=== PATIENT | male | born 1975 | race Caucasian/White ===

== ENCOUNTER 2016-07-27 17:44 | Emergency (ER) | payer OTHER ==
--- NOTE | 2016-07-27 18:09 | ED CLINICAL REPORT ---
Clinical Report - Physicians/Mid Levels [facility] [address] [place] [address] 07/27/2016 17:44 Patient: PEPE MI Time Seen: 1800; upon arrival, initial patient contact, initial documentation, patient care assumed. Arrived- By private vehicle. Historian- patient. HISTORY OF PRESENT ILLNESS Chief Complaint: LESION and TENDER AREA. This started about 2 days ago and is still present. Not itchy or burning. It is described as painful. It has been located on the right foot and left foot. No cause has been identified. (denies any new shoes, trauma). Similar symptoms previously: None. Recent medical care: Not recently seen/assessed. REVIEW OF SYSTEMS No fever. All systems otherwise negative, except as recorded above. PAST HISTORY See nurses notes. PROBLEMS: Bronchitis. Umm-Rectal Abscess. Depression. --17:59 Reema Perez, RGilles. SOCIAL HISTORY Heavy tobacco smoker. No alcohol use or drug use. No recent travel. Is a local resident. FAMILY HISTORY Negative. ADDITIONAL NOTES The nursing notes have been reviewed with agreement regarding the chief complaint, HPI, ROS, PMH and patient medications and allergies. PHYSICAL EXAM Vital Signs: 07/27/2016 17:57 BP: 135/87. HR: 86. RR: 18. O2 saturation: 97%. Temp: 98.1 F. Pain level now: 4/10. Appearance: Alert. Oriented X3. No acute distress. Neck: Neck supple. Respiratory: No respiratory distress. Skin: Skin warm and dry. Abnormal skin color. Rash present. Normal skin turgor. Moderate, well-demarcated, erythematous, macular skin rash on the right foot and left foot. (athletes feet present on both feet, with increased cracking and pealing in between toes, open wounds to base of toes on top of foot, on R foot near 3&4, on L near 4&5, each circular about 1 cm wide, strong foul odor). Extremities: Normal external inspection. Extremities nontender. Neuro: Oriented X 3. No motor deficit. No sensory deficit. PROGRESS AND PROCEDURES Patient counseled in person regarding the patient's stable condition and diagnosis. 18:09. Differential Diagnosis: Other possible considerations: fungus, cellulitis, mrsa, abscess, ulcer. Above considerations are based on history and physical exam. Differential diagnosis was discussed with patient. Disposition: Discharged home in good and unchanged condition (18:09). Condition: good and stable. CLINICAL IMPRESSION Athlete's foot INSTRUCTIONS Warnings: GENERAL WARNINGS: Return or contact your physician immediately if your condition worsens or changes unexpectedly, if not improving as expected, or if other problems arise. Specifically return if problem worsens. Prescription Medications: Lotrisone 1% / 0.05% Cream: Apply to affected areas twice daily for 2 weeks. Dispense fifteen (15) grams. No refills. Substitution is permissible. Follow-up: Follow up with your doctor in about five days even if well. Call for an appointment. Summary of care provided to patient. Understanding of the discharge instructions verbalized by patient. (Electronically signed by Vivian Becker A.R.N.P. 07/27/2016 22:07)
--- NOTE | 2016-07-27 18:09 | ED NURSING NOTES ---
Clinical Report - Nurses [facility] [place] [address] 07/27/2016 17:44 Patient: PEPE MI TRIAGE Acuity: LEVEL 4. Chief Complaint: SKIN LESION. Alert. No acute distress. --18:02 Reema Perez R.N. 17:57 07/27/16. BP: 135/87. HR: 86. RR: 18. O2 saturation: 97% on room air. Temp: 98.1 F (oral). Pain level now: 11/03. --18:02 Reema Perez R.N. Weight: 123.8 kg. Height/Length: 73 inches Per Patient. BMI: 36. --18:00 Reema Perez R.N. Medications None. --17:59 Reema Perez R.N. Medication/allergy information source: the patient. --18:02 Reema Perez R.N. Allergies Sulfa Antibiotics. Vicodin. --17:59 Reema Perez R.N. Penicillins. --17:59 Reema Perez R.N. History Arrived by private vehicle. Historian: patient. Accompanied by (girlfriend). Primary physician (none). Reported as located on the right foot and left foot. Onset. (2 days ago). ( Pt reports he has sores on the top of his feet and he has no idea what caused them.). PAST MEDICAL HX: Immunizations: up-to-date. SOCIAL HX: Current every day heavy tobacco smoker (cigarette)- less than 1 pack per day. No alcohol use or drug use. FALL RISK ASSESSMENT: Fall risk assessment completed. No fall risk identified. NUTRITIONAL RISK ASSESSMENT: The nutritional risk assessment revealed no deficiencies. FUNCTIONAL ASSESSMENT: Functional assessment: no impairments noted. LEARNING NEEDS ASSESSMENT: The learning needs assessment revealed no barriers. SKIN INTEGRITY ASSESSMENT: Skin integrity risk assessment completed. No skin integrity risk identified. --18:02 Reema Perez R.N. PROBLEMS: Bronchitis. Umm-Rectal Abscess. Depression. --17:59 Reema Perez R.N. Assessment GENERAL / NEURO / PSYCH: Alert. Oriented X 4. Appears in no acute distress. Patient appears calm and cooperative. RESPIRATORY: Respirations not labored. CVS: Capillary refill less than 2 seconds. GI / : Abdomen soft and nontender. SKIN: Mucous membranes are pink. Skin is warm and dry. --18:02 Reema Perez R.N. Interventions ID band on patient. To treatment room. --18:02 Reema Perez R.N. PHYSICAL ASSESSMENT 18:02 07/27/16. Ambulatory to room. GENERAL / NEURO / PSYCH: Alert. The patient does not appear to be in acute distress. Oriented X 4. HEENT: Mucous membranes are pink. RESPIRATORY: Respirations not labored. CVS: Capillary refill less than 2 seconds. GI / : Abdomen nontender. SKIN: Skin is warm and dry. Multiple small skin lesions with erythema and tenderness- on top of bilat feet. --18:02 Reema Perez R.N. NURSING PROGRESS NOTES 18:03 07/27/16. Two patient identifiers checked. Call light placed in reach. Side rails up x 1. Bed placed in lowest position. Brakes of bed on. --18:03 Reema Perez R.N. DISPOSITION / DISCHARGE Departure time: 1819Jul 27 2016. Condition at departure: improved and stable. No learning barriers present. Reviewed medication(s). Prescription(s) given to the patient. Patient verbalized understanding. Written instructions provided in Nigerien. The patient was discharged by the nurse practitioner. He was discharged home and accompanied by rn invasive. He left the Emergency Department ambulatory and via private vehicle. Recycler Forklift Driver Truck Driver driving. --19:07 Reema Perez R.N. Locked/Released at 07/27/2016 19:07 by Reema Perez R.N.
--- NOTE | 2016-07-27 18:09 | ED NURSING NOTES ---
Clinical Report - Nurses [facility] [place] [address] 07/27/2016 17:44 Patient: PEPE MI TRIAGE Acuity: LEVEL 4. Chief Complaint: SKIN LESION. Alert. No acute distress. --18:02 Reema Perez R.N. 17:57 07/27/16. BP: 135/87. HR: 86. RR: 18. O2 saturation: 97% on room air. Temp: 98.1 F (oral). Pain level now: 11/03. --18:02 Reema Perez R.N. Weight: 123.8 kg. Height/Length: 73 inches Per Patient. BMI: 36. --18:00 Reema Perez R.N. Medications None. --17:59 Reema Perez R.N. Medication/allergy information source: the patient. --18:02 Reema Perez R.N. Allergies Sulfa Antibiotics. Vicodin. --17:59 Reema Perez R.N. Penicillins. --17:59 Reema Perez R.N. History Arrived by private vehicle. Historian: patient. Accompanied by (girlfriend). Primary physician (none). Reported as located on the right foot and left foot. Onset. (2 days ago). ( Pt reports he has sores on the top of his feet and he has no idea what caused them.). PAST MEDICAL HX: Immunizations: up-to-date. SOCIAL HX: Current every day heavy tobacco smoker (cigarette)- less than 1 pack per day. No alcohol use or drug use. FALL RISK ASSESSMENT: Fall risk assessment completed. No fall risk identified. NUTRITIONAL RISK ASSESSMENT: The nutritional risk assessment revealed no deficiencies. FUNCTIONAL ASSESSMENT: Functional assessment: no impairments noted. LEARNING NEEDS ASSESSMENT: The learning needs assessment revealed no barriers. SKIN INTEGRITY ASSESSMENT: Skin integrity risk assessment completed. No skin integrity risk identified. --18:02 Reema Perez R.N. PROBLEMS: Bronchitis. Umm-Rectal Abscess. Depression. --17:59 Reema Perez R.N. Assessment GENERAL / NEURO / PSYCH: Alert. Oriented X 4. Appears in no acute distress. Patient appears calm and cooperative. RESPIRATORY: Respirations not labored. CVS: Capillary refill less than 2 seconds. GI / : Abdomen soft and nontender. SKIN: Mucous membranes are pink. Skin is warm and dry. --18:02 Reema Perez R.N. Interventions ID band on patient. To treatment room. --18:02 Reema Perez R.N. PHYSICAL ASSESSMENT 18:02 07/27/16. Ambulatory to room. GENERAL / NEURO / PSYCH: Alert. The patient does not appear to be in acute distress. Oriented X 4. HEENT: Mucous membranes are pink. RESPIRATORY: Respirations not labored. CVS: Capillary refill less than 2 seconds. GI / : Abdomen nontender. SKIN: Skin is warm and dry. Multiple small skin lesions with erythema and tenderness- on top of bilat feet. --18:02 Reema Perez R.N. NURSING PROGRESS NOTES 18:03 07/27/16. Two patient identifiers checked. Call light placed in reach. Side rails up x 1. Bed placed in lowest position. Brakes of bed on. --18:03 Reema Perez R.N. DISPOSITION / DISCHARGE Departure time: 1819Jul 27 2016. Condition at departure: improved and stable. No learning barriers present. Reviewed medication(s). Prescription(s) given to the patient. Patient verbalized understanding. Written instructions provided in Bahamian. The patient was discharged by the nurse practitioner. He was discharged home and accompanied by grocery store manager. He left the Emergency Department ambulatory and via private vehicle. Data Lead driving. --19:07 Reema Perez R.N. Locked/Released at 07/27/2016 19:07 by Reema Perez R.N.
--- NOTE | 2016-07-27 18:09 | ED CLINICAL REPORT ---
Clinical Report - Physicians/Mid Levels [facility] [address] [place] [address] 07/27/2016 17:44 Patient: PEPE MI Time Seen: 1800; upon arrival, initial patient contact, initial documentation, patient care assumed. Arrived- By private vehicle. Historian- patient. HISTORY OF PRESENT ILLNESS Chief Complaint: LESION and TENDER AREA. This started about 2 days ago and is still present. Not itchy or burning. It is described as painful. It has been located on the right foot and left foot. No cause has been identified. (denies any new shoes, trauma). Similar symptoms previously: None. Recent medical care: Not recently seen/assessed. REVIEW OF SYSTEMS No fever. All systems otherwise negative, except as recorded above. PAST HISTORY See nurses notes. PROBLEMS: Bronchitis. Umm-Rectal Abscess. Depression. --17:59 Reema Perez, RGilles. SOCIAL HISTORY Heavy tobacco smoker. No alcohol use or drug use. No recent travel. Is a local resident. FAMILY HISTORY Negative. ADDITIONAL NOTES The nursing notes have been reviewed with agreement regarding the chief complaint, HPI, ROS, PMH and patient medications and allergies. PHYSICAL EXAM Vital Signs: 07/27/2016 17:57 BP: 135/87. HR: 86. RR: 18. O2 saturation: 97%. Temp: 98.1 F. Pain level now: 4/10. Appearance: Alert. Oriented X3. No acute distress. Neck: Neck supple. Respiratory: No respiratory distress. Skin: Skin warm and dry. Abnormal skin color. Rash present. Normal skin turgor. Moderate, well-demarcated, erythematous, macular skin rash on the right foot and left foot. (athletes feet present on both feet, with increased cracking and pealing in between toes, open wounds to base of toes on top of foot, on R foot near 3&4, on L near 4&5, each circular about 1 cm wide, strong foul odor). Extremities: Normal external inspection. Extremities nontender. Neuro: Oriented X 3. No motor deficit. No sensory deficit. PROGRESS AND PROCEDURES Patient counseled in person regarding the patient's stable condition and diagnosis. 18:09. Differential Diagnosis: Other possible considerations: fungus, cellulitis, mrsa, abscess, ulcer. Above considerations are based on history and physical exam. Differential diagnosis was discussed with patient. Disposition: Discharged home in good and unchanged condition (18:09). Condition: good and stable. CLINICAL IMPRESSION Athlete's foot INSTRUCTIONS Warnings: GENERAL WARNINGS: Return or contact your physician immediately if your condition worsens or changes unexpectedly, if not improving as expected, or if other problems arise. Specifically return if problem worsens. Prescription Medications: Lotrisone 1% / 0.05% Cream: Apply to affected areas twice daily for 2 weeks. Dispense fifteen (15) grams. No refills. Substitution is permissible. Follow-up: Follow up with your doctor in about five days even if well. Call for an appointment. Summary of care provided to patient. Understanding of the discharge instructions verbalized by patient. (Electronically signed by Vivian Becker A.R.N.P. 07/27/2016 22:07)
--- NOTE | 2016-07-27 22:07 | ED DISCHARGE INSTRUCTIONS ---
Patient: PEPE MI General Instructions [facility] VisitID: [id number] [place] [address] 40y, M Registration Date/Time: 07/27/2016 Athlete's foot INSTRUCTIONS Warnings: GENERAL WARNINGS: Return or contact your physician immediately if your condition worsens or changes unexpectedly, if not improving as expected, or if other problems arise. Specifically return if problem worsens. Prescription Medications: Lotrisone 1% / 0.05% Cream: Apply to affected areas twice daily for 2 weeks. Dispense fifteen (15) grams. No refills. Substitution is permissible. Follow-up: Follow up with your doctor in about five days even if well. Call for an appointment. Summary of care provided to patient. Understanding of the discharge instructions verbalized by patient. ADDITIONAL INFORMATION Athletes Foot Athletes Foot is caused by a fungal infection in the skin. It affects the skin between the toes where it causes fissures (cracks in the skin). It can also affect the bottom of the foot where it causes dry white scales and peeling of the skin. This infection is more likely to occur when the foot is in hot, sweaty socks and shoes for long periods of time. This infection is treated with skin creams or oral medicine. Home Care: It is important to keep the feet dry. Use absorbent cotton socks and change them if they become sweaty; or wear an open-toe shoe or sandal. Wash the feet at least once a day with soap and water. Apply the antifungal cream as prescribed. Some antifungal creams are available without a prescription (Lotrimin, Tinactin). It may take a week before the rash starts to improve and it can take about three to four weeks to completely clear. Continue the medicine until the rash is all gone. Use [id number] antifungal powders or sprays on your feet after exposure to high-risk environments (public showers, gyms and locker rooms) may prevent future infections. You may wish to use appropriate footwear to reduce exposure. Follow Up with your doctor as recommended by our staff if the rash is not starting to improve after TEN days of treatment, or if the rash continues to spread. Get Prompt Medical Attention if any of the following occur: Increasing redness or swelling of the foot Pus draining from cracks in the skin Fever of 100.4F (38C) or higher, or as directed by your healthcare provider Clotrimazole Topical solution What is this medicine? CLOTRIMAZOLE (kloe TRIM a zole) is an antifungal medicine. It is used to treat certain kinds of fungal or yeast infections of the skin. How should I use this medicine? This medicine is for external use only. Do not take by mouth. Follow the directions on the prescription label. Wash your hands before and after use. If treating a hand or nail infection, wash hands before use only. Apply a thin layer to the affected area and a small amount to the surrounding area. Rub in gently. Do not get this medicine in your eyes. If you do, rinse out with plenty of cool tap water. Use this medicine at regular intervals. Do not use more often than directed. Finish the full course prescribed by your doctor or health child care centre director even if you think you are better. Do not stop using except on your doctor's advice. Talk to your studio designer regarding the use of this medicine in children. While this drug has been used in young children for selected conditions, precautions do apply. What side effects may I notice from receiving this medicine? Side effects that usually do not require medical attention (report to your doctor or health child care centre director if they continue or are bothersome): allergic reactions like skin rash, itching or hives, swelling of the face, lips, or tongue skin irritation, burning What may interact with this medicine? amphotericin b topical products that have nystatin What if I miss a dose? If you miss a dose, use it as soon as you can. If it is almost time for your next dose, use only that dose. Do not use double or extra doses. Where should I keep my medicine? Keep out of the reach of children. Store at room temperature between 2 to 30 degrees C (36 to 86 degrees F). Do not freeze. Throw away any unused medicine after the expiration date. What should I tell my health care provider before I take this medicine? They need to know if you have any of these conditions: an unusual or allergic reaction to clotrimazole, other antifungals or medicines, foods, dyes or preservatives or trying to get breast-feeding What should I watch for while using this medicine? Tell your doctor or health child care centre director if your symptoms do not start to improve after 7 days. Do not self-medicate for more than one week. If you are using this medicine for 'jock itch' be sure to dry the groin completely after bathing. Do not wear underwear that is tight-fitting or made from synthetic fibers like denzel or nylon. Wear loose-fitting, cotton underwear. If you are using this medicine for athlete's foot be sure to dry your feet carefully after bathing, especially between the toes. Do not wear socks made from wool or synthetic materials like denzel or nylon. Wear clean cotton socks and change them at least once a day, change them more if your feet sweat a lot. Also, try to wear sandals or shoes that are well-ventilated. You have been given the following additional information: Athlete's Foot Clotrimazole Topical solution (Electronically signed by Vivian Becker A.R.N.P. 07/27/2016 22:07)
--- NOTE | 2016-07-27 22:07 | ED MAR SUMMARY ---
..... Medication Administration Record [facility] [address] [place], [place] [id number] Patient: PEPE MI Visit ID: [id number] 40y, M Weight: 123.8 kg Height/Length: 73 in BMI: 36 ALLERGIES: Penicillins, Sulfa Antibiotics, Vicodin
--- NOTE | 2016-07-27 22:07 | ED MAR SUMMARY ---
..... Medication Administration Record [facility] [address] [place], [place] [id number] Patient: PEPE MI Visit ID: [id number] 40y, M Weight: 123.8 kg Height/Length: 73 in BMI: 36 ALLERGIES: Penicillins, Sulfa Antibiotics, Vicodin
--- NOTE | 2016-07-27 22:07 | ED DISCHARGE INSTRUCTIONS ---
Patient: PEPE MI General Instructions [facility] VisitID: [id number] [place] [address] 40y, M Registration Date/Time: 07/27/2016 Athlete's foot INSTRUCTIONS Warnings: GENERAL WARNINGS: Return or contact your physician immediately if your condition worsens or changes unexpectedly, if not improving as expected, or if other problems arise. Specifically return if problem worsens. Prescription Medications: Lotrisone 1% / 0.05% Cream: Apply to affected areas twice daily for 2 weeks. Dispense fifteen (15) grams. No refills. Substitution is permissible. Follow-up: Follow up with your doctor in about five days even if well. Call for an appointment. Summary of care provided to patient. Understanding of the discharge instructions verbalized by patient. ADDITIONAL INFORMATION Athletes Foot Athletes Foot is caused by a fungal infection in the skin. It affects the skin between the toes where it causes fissures (cracks in the skin). It can also affect the bottom of the foot where it causes dry white scales and peeling of the skin. This infection is more likely to occur when the foot is in hot, sweaty socks and shoes for long periods of time. This infection is treated with skin creams or oral medicine. Home Care: It is important to keep the feet dry. Use absorbent cotton socks and change them if they become sweaty; or wear an open-toe shoe or sandal. Wash the feet at least once a day with soap and water. Apply the antifungal cream as prescribed. Some antifungal creams are available without a prescription (Lotrimin, Tinactin). It may take a week before the rash starts to improve and it can take about three to four weeks to completely clear. Continue the medicine until the rash is all gone. Use rhqj-dqi-tkmchjz antifungal powders or sprays on your feet after exposure to high-risk environments (public showers, gyms and locker rooms) may prevent future infections. You may wish to use appropriate footwear to reduce exposure. Follow Up with your doctor as recommended by our staff if the rash is not starting to improve after TEN days of treatment, or if the rash continues to spread. Get Prompt Medical Attention if any of the following occur: Increasing redness or swelling of the foot Pus draining from cracks in the skin Fever of 100.4F (38C) or higher, or as directed by your healthcare provider Clotrimazole Topical solution What is this medicine? CLOTRIMAZOLE (kloe TRIM a zole) is an antifungal medicine. It is used to treat certain kinds of fungal or yeast infections of the skin. How should I use this medicine? This medicine is for external use only. Do not take by mouth. Follow the directions on the prescription label. Wash your hands before and after use. If treating a hand or nail infection, wash hands before use only. Apply a thin layer to the affected area and a small amount to the surrounding area. Rub in gently. Do not get this medicine in your eyes. If you do, rinse out with plenty of cool tap water. Use this medicine at regular intervals. Do not use more often than directed. Finish the full course prescribed by your doctor or health healthcare receptionist even if you think you are better. Do not stop using except on your doctor's advice. Talk to your construction executive regarding the use of this medicine in children. While this drug has been used in young children for selected conditions, precautions do apply. What side effects may I notice from receiving this medicine? Side effects that usually do not require medical attention (report to your doctor or health healthcare receptionist if they continue or are bothersome): allergic reactions like skin rash, itching or hives, swelling of the face, lips, or tongue skin irritation, burning What may interact with this medicine? amphotericin b topical products that have nystatin What if I miss a dose? If you miss a dose, use it as soon as you can. If it is almost time for your next dose, use only that dose. Do not use double or extra doses. Where should I keep my medicine? Keep out of the reach of children. Store at room temperature between 2 to 30 degrees C (36 to 86 degrees F). Do not freeze. Throw away any unused medicine after the expiration date. What should I tell my health care provider before I take this medicine? They need to know if you have any of these conditions: an unusual or allergic reaction to clotrimazole, other antifungals or medicines, foods, dyes or preservatives or trying to get breast-feeding What should I watch for while using this medicine? Tell your doctor or health healthcare receptionist if your symptoms do not start to improve after 7 days. Do not self-medicate for more than one week. If you are using this medicine for 'jock itch' be sure to dry the groin completely after bathing. Do not wear underwear that is tight-fitting or made from synthetic fibers like denzel or nylon. Wear loose-fitting, cotton underwear. If you are using this medicine for athlete's foot be sure to dry your feet carefully after bathing, especially between the toes. Do not wear socks made from wool or synthetic materials like denzel or nylon. Wear clean cotton socks and change them at least once a day, change them more if your feet sweat a lot. Also, try to wear sandals or shoes that are well-ventilated. You have been given the following additional information: Athlete's Foot Clotrimazole Topical solution (Electronically signed by Vivian Becker A.R.N.P. 07/27/2016 22:07)
--- NOTE | 2016-07-27 22:07 | ED MED RECONCILIATION SUMMARY ---
Patient: PEPE MI Medication Reconciliation Report [facility] VisitID: [id number] [address] [place] [address] 40y, M Registration Date/Time: 07/27/2016 Weight: 123.8 kg Height/Length: 73 in. BMI: 36.0 ALLERGIES: Penicillins, Sulfa Antibiotics, Vicodin The patient's Home Medications are listed below: NONE. The source(s) of the original Home Medication information: patient The following Medications were given to the patient in the Emergency Department: None. The following Medications were prescribed to the patient: Lotrisone 1% / 0.05% Cream: Apply to affected areas twice daily for 2 weeks. Dispense fifteen (15) grams. No refills. Substitution is permissible. -- Vivian Becker A.R.N.P.
--- NOTE | 2016-07-27 22:07 | ED MED RECONCILIATION SUMMARY ---
Patient: PEPE MI Medication Reconciliation Report [facility] VisitID: [id number] [address] [place] [address] 40y, M Registration Date/Time: 07/27/2016 Weight: 123.8 kg Height/Length: 73 in. BMI: 36.0 ALLERGIES: Penicillins, Sulfa Antibiotics, Vicodin The patient's Home Medications are listed below: NONE. The source(s) of the original Home Medication information: patient The following Medications were given to the patient in the Emergency Department: None. The following Medications were prescribed to the patient: Lotrisone 1% / 0.05% Cream: Apply to affected areas twice daily for 2 weeks. Dispense fifteen (15) grams. No refills. Substitution is permissible. -- Vivian Becker A.R.N.P.
== END 2016-07-27 18:20 | disposition home or self-care (01) ==
LOC: ED SRH 17:44
DX: B35.3 Tinea pedis (principal); F17.210 Nicotine dependence, cigarettes, uncomplicated; Z88.0 Allergy status to penicillin; Z88.2 Allergy status to sulfonamides; Z88.5 Allergy status to narcotic agent

== ENCOUNTER 2016-12-18 19:18 | Emergency (ER) | payer OTHER ==
--- NOTE | 2016-12-18 20:45 | ED NURSING NOTES ---
Clinical Report - Nurses [facility] [address] [place] [address] 12/18/2016 19:23 Patient: PEPE IM TRIAGE Triage time 19:31. Acuity: LEVEL 3. Chief Complaint: LEFT LOWER EXTREMITY PAIN and SWELLING. --19:35 Sheriff Gonzales R.N. 19:30 12/18/16. BP: 147/82. HR: 92. RR: 18. O2 saturation: 98%. Temp: 97.8 F. Pain level now: 03/05. --19:35 Sheriff Gonzales R.N. Weight: 122.4 kg stated. Height/Length: 74 inches Per Patient. BMI: 34.7. --19:30 Sheriff Gonzales R.N. Medications None. --19:33 Sheriff Gonzales R.N. Allergies Penicillins. Sulfa Antibiotics. Vicodin. --19:33 Sheriff Gonzales R.N. History Arrived by private vehicle. Historian: patient. Accompanied by friend. ( Tripped over a log and landed on left knee. Noted swelling and redness. Pain 03/05). PAST MEDICAL HX: Tetanus status: unknown. SOCIAL HX: Heavy tobacco smoker- less than 1 pack per day. No alcohol use or drug use. FALL RISK ASSESSMENT: Fall risk assessment completed. No fall risk identified. NUTRITIONAL RISK ASSESSMENT: The nutritional risk assessment revealed no deficiencies. FUNCTIONAL ASSESSMENT: Functional assessment: no impairments noted. LEARNING NEEDS ASSESSMENT: The learning needs assessment revealed no barriers. SKIN INTEGRITY ASSESSMENT: Skin integrity risk assessment completed. No skin integrity risk identified. --19:35 Sheriff Gonzales R.N. PROBLEMS: Athlete's Foot. Bronchitis. Umm-Rectal Abscess. Depression. --19:33 Sheriff Gonzales R.N. Interventions ID band on patient. --19:35 Sheriff Gonzales R.N. PHYSICAL ASSESSMENT Ambulatory to room. GENERAL / NEURO / PSYCH: Oriented X 4. Alert. Appears in no acute distress. Appears in pain. EXTREMITIES: Left knee: tenderness and swelling. SKIN: Skin intact. Skin is warm and dry. --19:36 Sheriff Gonzales R.N. NURSING PROGRESS NOTES Two patient identifiers checked. Call light placed in reach. Side rails up x 2. Bed placed in lowest position. Brakes of bed on. --19:36 Sheriff Gonzales R.N. 20:01 12/18/2016 Motrin PO 800 mg given. Allergies verified and confirmed 5 rights. --20:01 Sheriff Gonzales R.N. 20:30 12/18/16. Immobilizer applied to the left knee by nurse; distal pulses intact, sensation intact and motor function within normal limits. --02:31 Aidee Barnett. DISPOSITION / DISCHARGE 20:45 12/18/16. Condition at departure: stable. The goals identified in the patient's plan of care were met. No learning barriers present. Discharge instructions provided and reviewed with the patient and spouse. Reviewed need for increased fluid intake. Work note given. Patient and spouse verbalized understanding. Written instructions provided in Tajik. ( Follow up with [facility] for next available appointment. Rest and take it easy. Apply ice to affected extremity, elevate and take anti-inflammatories as needed. Patient and family verbalized understanding and had no additional questions at this time.). The patient was discharged by the physician assistant auditor. He was discharged home and accompanied by spouse. He left the Emergency Department ambulatory and via private vehicle. Spouse driving. --02:30 Aidee Barnett 02:25 12/18/16. BP: 137/82. HR: 76. RR: 20. O2 saturation: 98% on room air. Pain level now: 02/02. --02:30 Aidee Barnett. Locked/Released at 12/19/2016 2:31 by Aidee Barnett,
--- NOTE | 2016-12-18 20:45 | ED ORDER SUMMARY ---
..... Patient: PEPE MI OrderSheet [facility] VisitID: [id number] [address] [place] [address] 40y, M Registration Date/Time: 12/18/2016 ORDER SHEET Weight: 122.4 kg (stated) Allergies: Penicillins, Sulfa Antibiotics, Vicodin GENERAL ORDERS: Knee 4V Left Urgent (19:46 12/18/2016 Lilian P.A.-C) (Ack 19:49 AMcQuoid ER Tech1) MEDICATION ORDERS: Motrin PO 800 mg (NOW) (19:53 12/18/2016 Lilian P.A.-C) (20:01 Rima R.N.) IV FLUIDS: ORDER SHEET NOTES: [Electronically signed by Nimco GuillenAShea-Shannon (21:06 12/18/2016)] [Electronically signed by Aidee Barnett (02:31 12/19/2016)] [Electronically locked/signed by Aidee Barnett (02:31 12/19/2016)]
--- NOTE | 2016-12-18 20:45 | ED CLINICAL REPORT ---
Clinical Report - Physicians/Mid Levels [facility] [address] [place] [address] 12/18/2016 19:23 Patient: PEPE MI Time Seen: 19:46 Dec 18 2016. Arrived- By private vehicle. Historian- patient. HISTORY OF PRESENT ILLNESS Chief Complaint: Injury to left knee. The injury happened just prior to arrival. The patient sustained a direct blow. Fell. This was not an incised wound. Occurred at work. Patient is experiencing moderate pain. Patient denies injury to the head. 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 Reports falling onto his hands and wrists, however does not have operation of any pain. No LOC, no injury to the head. Has been ambulating, however limping. Denies Injury to the left knee that was major in nature. No medications prior to arrival.). REVIEW OF SYSTEMS The patient complains of pain on weight bearing. All systems otherwise negative, except as recorded above. PAST HISTORY See nurses notes. The patient has not had a prior injury to the same area. Tetanus immunization status is up-to-date. Problems: Athlete's Foot. Bronchitis. Umm-Rectal Abscess. Depression. Medications: None. Allergies: Penicillins. Sulfa Antibiotics. Vicodin. SOCIAL HISTORY Smoker- current status unknown. No alcohol use or drug use. ADDITIONAL NOTES The nursing notes have been reviewed. PHYSICAL EXAM Vital Signs: 12/18/2016 19:30 BP: 147/82. HR: 92. RR: 18. O2 saturation: 98%. Temp: 97.8 F. Pain level now: 8/10. Appearance: Alert. No acute distress. Head: Head atraumatic. ENT: Ears normal. Nose normal. Neck: Normal inspection. Neck supple. CVS: Heart sounds normal. Respiratory: No respiratory distress. Breath sounds normal. Abdomen: No visible injury. Soft. No abdominal tenderness. The bowel sounds are not abnormal. Skin: Skin warm. Normal skin color. Extremities: Left thigh. No tenderness or laceration. Left knee: mild tenderness and swelling located in the patella. Limited ROM. No ligamentous laxity present. No ecchymosis or puncture wound. Left leg. No tenderness or swelling. Left ankle. No ecchymosis or foreign body. Gait: Limping gait. Neuro, Vascular and Tendons: Vascular status intact. Neuro: Oriented X 3. LABS, X-RAYS, AND EKG Lt Knee X-ray: No fracture. Interpretation time: 2044. PROGRESS AND PROCEDURES PROCEDURES (L. knee immobolizer). Course of Care: Patient is stable. Able to ambulate, given the immobilizer for support. No signs of acute fracture of the left knee. Given the mechanism which is lower in nature and direct trauma, ligamentous injury is less likely, however cannot be ruled out. Patient understands the plan to follow up outpatient, take anti-inflammatory medications and elevate the lower extremity. Patient is stable. Patient/family counseled. Disposition: Discharged. CLINICAL IMPRESSION Contusion to the right knee. INSTRUCTIONS Apply ice. Elevate affected areas above chest level. No strenuous activity. You may walk and bear weight as tolerated. Do not work for three days. OTC Medications: Take OTC medications according to label instructions. Available over the counter. Motrin IB 200 mg (available over the counter): take 4 orally every 8 hours for 5 days, as needed for pain or swelling Follow-up with: [facility], , [address], , [place], [id number] Follow up. Call for the next available appointment. (Electronically signed by Nimco Guillen P.A.-C 12/18/2016 21:06)
--- NOTE | 2016-12-18 20:45 | ED ORDER SUMMARY ---
..... Patient: PPEE MI OrderSheet [facility] VisitID: [id number] [address] [place] [address] 40y, M Registration Date/Time: 12/18/2016 ORDER SHEET Weight: 122.4 kg (stated) Allergies: Penicillins, Sulfa Antibiotics, Vicodin GENERAL ORDERS: Knee 4V Left Urgent (19:46 12/18/2016 Lilian P.A.-C) (Ack 19:49 AMcQuoid ER Tech1) MEDICATION ORDERS: Motrin PO 800 mg (NOW) (19:53 12/18/2016 Lilian P.A.-C) (20:01 Rima R.N.) IV FLUIDS: ORDER SHEET NOTES: [Electronically signed by Nimco GuillenAShea-Shannon (21:06 12/18/2016)] [Electronically signed by Aidee Barnett (02:31 12/19/2016)] [Electronically locked/signed by Aidee Barnett (02:31 12/19/2016)]
--- NOTE | 2016-12-18 20:45 | ED CLINICAL REPORT ---
Clinical Report - Physicians/Mid Levels [facility] [address] [place] [address] 12/18/2016 19:23 Patient: PEPE MI Time Seen: 19:46 Dec 18 2016. Arrived- By private vehicle. Historian- patient. HISTORY OF PRESENT ILLNESS Chief Complaint: Injury to left knee. The injury happened just prior to arrival. The patient sustained a direct blow. Fell. This was not an incised wound. Occurred at work. Patient is experiencing moderate pain. Patient denies injury to the head. 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 Reports falling onto his hands and wrists, however does not have operation of any pain. No LOC, no injury to the head. Has been ambulating, however limping. Denies Injury to the left knee that was major in nature. No medications prior to arrival.). REVIEW OF SYSTEMS The patient complains of pain on weight bearing. All systems otherwise negative, except as recorded above. PAST HISTORY See nurses notes. The patient has not had a prior injury to the same area. Tetanus immunization status is up-to-date. Problems: Athlete's Foot. Bronchitis. Umm-Rectal Abscess. Depression. Medications: None. Allergies: Penicillins. Sulfa Antibiotics. Vicodin. SOCIAL HISTORY Smoker- current status unknown. No alcohol use or drug use. ADDITIONAL NOTES The nursing notes have been reviewed. PHYSICAL EXAM Vital Signs: 12/18/2016 19:30 BP: 147/82. HR: 92. RR: 18. O2 saturation: 98%. Temp: 97.8 F. Pain level now: 8/10. Appearance: Alert. No acute distress. Head: Head atraumatic. ENT: Ears normal. Nose normal. Neck: Normal inspection. Neck supple. CVS: Heart sounds normal. Respiratory: No respiratory distress. Breath sounds normal. Abdomen: No visible injury. Soft. No abdominal tenderness. The bowel sounds are not abnormal. Skin: Skin warm. Normal skin color. Extremities: Left thigh. No tenderness or laceration. Left knee: mild tenderness and swelling located in the patella. Limited ROM. No ligamentous laxity present. No ecchymosis or puncture wound. Left leg. No tenderness or swelling. Left ankle. No ecchymosis or foreign body. Gait: Limping gait. Neuro, Vascular and Tendons: Vascular status intact. Neuro: Oriented X 3. LABS, X-RAYS, AND EKG Lt Knee X-ray: No fracture. Interpretation time: 2044. PROGRESS AND PROCEDURES PROCEDURES (L. knee immobolizer). Course of Care: Patient is stable. Able to ambulate, given the immobilizer for support. No signs of acute fracture of the left knee. Given the mechanism which is lower in nature and direct trauma, ligamentous injury is less likely, however cannot be ruled out. Patient understands the plan to follow up outpatient, take anti-inflammatory medications and elevate the lower extremity. Patient is stable. Patient/family counseled. Disposition: Discharged. CLINICAL IMPRESSION Contusion to the right knee. INSTRUCTIONS Apply ice. Elevate affected areas above chest level. No strenuous activity. You may walk and bear weight as tolerated. Do not work for three days. OTC Medications: Take OTC medications according to label instructions. Available over the counter. Motrin IB 200 mg (available over the counter): take 4 orally every 8 hours for 5 days, as needed for pain or swelling Follow-up with: [facility], , [address], , [place], [address] Follow up. Call for the next available appointment. (Electronically signed by Nimco Guillen P.A.-C 12/18/2016 21:06)
--- NOTE | 2016-12-18 20:45 | ED NURSING NOTES ---
Clinical Report - Nurses [facility] [address] [place] [address] 12/18/2016 19:23 Patient: PEPE MI TRIAGE Triage time 19:31. Acuity: LEVEL 3. Chief Complaint: LEFT LOWER EXTREMITY PAIN and SWELLING. --19:35 Sheriff Gonzales R.N. 19:30 12/18/16. BP: 147/82. HR: 92. RR: 18. O2 saturation: 98%. Temp: 97.8 F. Pain level now: 03/05. --19:35 Sheriff Gonzales R.N. Weight: 122.4 kg stated. Height/Length: 74 inches Per Patient. BMI: 34.7. --19:30 Sheriff Gonzales R.N. Medications None. --19:33 Sheriff Gonzales R.N. Allergies Penicillins. Sulfa Antibiotics. Vicodin. --19:33 Sheriff Gonzales R.N. History Arrived by private vehicle. Historian: patient. Accompanied by friend. ( Tripped over a log and landed on left knee. Noted swelling and redness. Pain 03/05). PAST MEDICAL HX: Tetanus status: unknown. SOCIAL HX: Heavy tobacco smoker- less than 1 pack per day. No alcohol use or drug use. FALL RISK ASSESSMENT: Fall risk assessment completed. No fall risk identified. NUTRITIONAL RISK ASSESSMENT: The nutritional risk assessment revealed no deficiencies. FUNCTIONAL ASSESSMENT: Functional assessment: no impairments noted. LEARNING NEEDS ASSESSMENT: The learning needs assessment revealed no barriers. SKIN INTEGRITY ASSESSMENT: Skin integrity risk assessment completed. No skin integrity risk identified. --19:35 Sheriff Gonzales R.N. PROBLEMS: Athlete's Foot. Bronchitis. Umm-Rectal Abscess. Depression. --19:33 Sheriff Gonzales R.N. Interventions ID band on patient. --19:35 Sheriff Gonzales R.N. PHYSICAL ASSESSMENT Ambulatory to room. GENERAL / NEURO / PSYCH: Oriented X 4. Alert. Appears in no acute distress. Appears in pain. EXTREMITIES: Left knee: tenderness and swelling. SKIN: Skin intact. Skin is warm and dry. --19:36 Sheriff Gonzales R.N. NURSING PROGRESS NOTES Two patient identifiers checked. Call light placed in reach. Side rails up x 2. Bed placed in lowest position. Brakes of bed on. --19:36 Sheriff Gonzales R.N. 20:01 12/18/2016 Motrin PO 800 mg given. Allergies verified and confirmed 5 rights. --20:01 Sheriff Gonzales R.N. 20:30 12/18/16. Immobilizer applied to the left knee by nurse; distal pulses intact, sensation intact and motor function within normal limits. --02:31 Aidee Barnett. DISPOSITION / DISCHARGE 20:45 12/18/16. Condition at departure: stable. The goals identified in the patient's plan of care were met. No learning barriers present. Discharge instructions provided and reviewed with the patient and spouse. Reviewed need for increased fluid intake. Work note given. Patient and spouse verbalized understanding. Written instructions provided in Malay. ( [facility] up [facility] for next available appointment. Rest and take it easy. Apply ice to affected extremity, elevate and take anti-inflammatories as needed. Patient and family verbalized understanding and had no additional questions at this time.). The patient was discharged by the physician orthopedic assistant. He was discharged home and accompanied by spouse. He left the Emergency Department ambulatory and via private vehicle. Spouse driving. --02:30 Aidee Barnett 02:25 12/18/16. BP: 137/82. HR: 76. RR: 20. O2 saturation: 98% on room air. Pain level now: 02/02. --02:30 Aidee Barnett. Locked/Released at 12/19/2016 2:31 by Aidee Barnett,
--- NOTE | 2016-12-18 22:05 | DIAGNOSTIC IMAGING REPORT ---
PROCEDURE: XR KNEE 4 VIEWS - LEFT INDICATION: TRAUMA/INJURY TECHNIQUE: Four views. COMPARISON: None. FINDINGS: Osseous structures and joint spaces are normal. No effusion. IMPRESSION: 1. Normal left knee.
--- NOTE | 2016-12-19 02:31 | ED DISCHARGE INSTRUCTIONS ---
Patient: PEPE MI General Instructions [facility] VisitID: [id number] [address] [place] [address] 40y, M Registration Date/Time: 12/18/2016 Contusion to the right knee. INSTRUCTIONS Apply ice. Elevate affected areas above chest level. No strenuous activity. You may walk and bear weight as tolerated. Do not work for three days. OTC Medications: Take OTC medications according to label instructions. Available over the counter. Motrin IB 200 mg (available over the counter): take 4 orally every 8 hours for 5 days, as needed for pain or swelling Follow-[facility] with: [facility], , [address] [place], [address] Follow up. Call for the next available appointment. ADDITIONAL INFORMATION Contusion:Lower Extremity You have a CONTUSION of your LOWER extremity (leg, knee, ankle, foot, or toes). This causes local pain, swelling and sometimes bruising. There are no broken bones. This injury may take from a few days to a few weeks to heal. Home Care: 1) Keep your leg elevated to reduce pain and swelling. When sleeping, place a pillow under the injured leg. When sitting, support the injured leg so it is level with your waist. This is very important during the first 48 hours. 2) If CRUTCHES have been advised, do not bear full weight on the injured leg until you can do so without pain. You may return to sports when you are able to hop and run on the injured leg without pain. 3) Apply an ice pack (ice cubes in a plastic bag, wrapped in a towel) over the injured area for 20 minutes every 1-2 hours the first day for pain relief. Continue this 3-4 times a day until the pain and swelling goes away. 4) You may use acetaminophen (Tylenol) or ibuprofen (Motrin, Advil) to control pain, unless another pain medicine was prescribed. [ NOTE : If you have chronic liver or kidney disease or ever had a stomach ulcer or GI bleeding, talk with your doctor before using these medicines.] Follow Up with your doctor or this facility if you are not starting to improve within the next THREE days. [NOTE: If X-rays were taken, they will be reviewed by a radiologist. You will be notified of any new findings that may affect your care.] Get Prompt Medical Attention if any of the following occur: -- Pain or swelling increases -- Toes become cold, blue, numb or tingly -- Redness, warmth or drainage from the skin Ibuprofen Oral tablet What is this medicine? IBUPROFEN (eye BYOO proe fen) is a non-steroidal anti-inflammatory drug (NSAID). It is used for dental pain, fever, headaches or migraines, osteoarthritis, rheumatoid arthritis, or painful monthly periods. It can also relieve minor aches and pains caused by a cold, flu, or sore throat. How should I use this medicine? Take this medicine by mouth with a glass of water. Follow the directions on the prescription label. Take this medicine with food if your stomach gets upset. Try to not lie down for at least 10 minutes after you take the medicine. Take your medicine at regular intervals. Do not take your medicine more often than directed. A special MedGuide will be given to you by the pharmacist with each prescription and refill. Be sure to read this information carefully each time. Talk to your baseball inspector and repairer regarding the use of this medicine in children. Special care may be needed. What side effects may I notice from receiving this medicine? Side effects that you should report to your doctor or health rn primary care as soon as possible: allergic reactions like skin rash, itching or hives, swelling of the face, lips, or tongue black or bloody stools, blood in the urine or in vomit breathing problems changes in vision chest pain general ill feeling or flu-like symptoms nausea or vomiting redness, blistering, peeling or loosening of the skin, including inside the mouth slurred speech or weakness on one side of the body stomach pain unexplained weight gain or swelling unusually weak or tired yellowing of eyes or skin Side effects that usually do not require medical attention (report to your doctor or health rn primary care if they continue or are bothersome): constipation or diarrhea dizziness gas or heartburn stomach upset What may interact with this medicine? Do not take this medicine with any of the following medications: cidofovir ketorolac methotrexate pemetrexed This medicine may also interact with the following medications: alcohol aspirin diuretics lithium other drugs for inflammation like prednisone warfarin What if I miss a dose? If you miss a dose, take it as soon as you can. If it is almost time for your next dose, take only that dose. Do not take double or extra doses. Where should I keep my medicine? Keep out of the reach of children. Store at room temperature between 15 and 30 degrees C (59 and 86 degrees F). Keep container tightly closed. Throw away any unused medicine after the expiration date. What should I tell my health care provider before I take this medicine? They need to know if you have any of these conditions: asthma cigarette smoker drink more than 3 alcohol containing drinks a day heart disease or circulation problems such as heart failure or leg edema (fluid retention) high blood pressure kidney disease liver disease stomach bleeding or ulcers an unusual or allergic reaction to ibuprofen, aspirin, other NSAIDS, other medicines, foods, dyes, or preservatives or trying to get breast-feeding What should I watch for while using this medicine? Tell your doctor or healthcare professional if your symptoms do not start to get better or if they get worse. This medicine does not prevent heart attack or stroke. In fact, this medicine may increase the chance of a heart attack or stroke. The chance may increase with longer use of this medicine and in people who have heart disease. If you take aspirin to prevent heart attack or stroke, talk with your doctor or health rn primary care. Do not take other medicines that contain aspirin, ibuprofen, or naproxen with this medicine. Side effects such as stomach upset, nausea, or ulcers may be more likely to occur. Many medicines available without a prescription should not be taken with this medicine. This medicine can cause ulcers and bleeding in the stomach and intestines at any time during treatment. Ulcers and bleeding can happen without warning symptoms and can cause . To reduce your risk, do not smoke cigarettes or drink alcohol while you are taking this medicine. You may get drowsy or dizzy. Do not drive, use machinery, or do anything that needs mental alertness until you know how this medicine affects you. Do not stand or sit up quickly, especially if you are an older patient. This reduces the risk of dizzy or fainting spells. This medicine can cause you to bleed more easily. Try to avoid damage to your teeth and gums when you brush or floss your teeth. You have been given the following additional information: Contusion, Lower Extremity Ibuprofen Oral tablet No strenuous activity. You may walk and bear weight as tolerated. Do not work for three days. (Electronically signed by Nimco Guillen P.A.-C 12/18/2016 21:06)
--- NOTE | 2016-12-19 02:31 | ED MED RECONCILIATION SUMMARY ---
Patient: PEPE MI Medication Reconciliation Report [facility] VisitID: [id number] [address] [place] [address] 40y, M Registration Date/Time: 12/18/2016 Weight: 122.4 kg Height/Length: 74 in. BMI: 34.7 ALLERGIES: Penicillins, Sulfa Antibiotics, Vicodin The patient's Home Medications are listed below: NONE. The source(s) of the original Home Medication information: Not obtained. The following Medications were given to the patient in the Emergency Department: Motrin [PO] PO 800 mg, administered: 12/18/2016 8:01:00 PM The following Medications were prescribed to the patient: Take OTC medications according to label instructions. Available over the counter. -- Nimco Guillen, P.A.-Shannon Motrin IB 200 mg (available over the counter): take 4 orally every 8 hours for 5 days, as needed for pain or swelling -- Nimco Guillen, P.A.-C
--- NOTE | 2016-12-19 02:31 | ED DISCHARGE INSTRUCTIONS ---
Patient: PEPE MI General Instructions [facility] VisitID: [id number] [address] [place] [address] 40y, M Registration Date/Time: 12/18/2016 Contusion to the right knee. INSTRUCTIONS Apply ice. Elevate affected areas above chest level. No strenuous activity. You may walk and bear weight as tolerated. Do not work for three days. OTC Medications: Take OTC medications according to label instructions. Available over the counter. Motrin IB 200 mg (available over the counter): take 4 orally every 8 hours for 5 days, as needed for pain or swelling Follow-up with: [facility], , [address] [place], [address] Follow up. Call for the next available appointment. ADDITIONAL INFORMATION Contusion:Lower Extremity You have a CONTUSION of your LOWER extremity (leg, knee, ankle, foot, or toes). This causes local pain, swelling and sometimes bruising. There are no broken bones. This injury may take from a few days to a few weeks to heal. Home Care: 1) Keep your leg elevated to reduce pain and swelling. When sleeping, place a pillow under the injured leg. When sitting, support the injured leg so it is level with your waist. This is very important during the first 48 hours. 2) If CRUTCHES have been advised, do not bear full weight on the injured leg until you can do so without pain. You may return to sports when you are able to hop and run on the injured leg without pain. 3) Apply an ice pack (ice cubes in a plastic bag, wrapped in a towel) over the injured area for 20 minutes every 1-2 hours the first day for pain relief. Continue this 3-4 times a day until the pain and swelling goes away. 4) You may use acetaminophen (Tylenol) or ibuprofen (Motrin, Advil) to control pain, unless another pain medicine was prescribed. [ NOTE : If you have chronic liver or kidney disease or ever had a stomach ulcer or GI bleeding, talk with your doctor before using these medicines.] Follow Up with your doctor or this facility if you are not starting to improve within the next THREE days. [NOTE: If X-rays were taken, they will be reviewed by a radiologist. You will be notified of any new findings that may affect your care.] Get Prompt Medical Attention if any of the following occur: -- Pain or swelling increases -- Toes become cold, blue, numb or tingly -- Redness, warmth or drainage from the skin Ibuprofen Oral tablet What is this medicine? IBUPROFEN (eye BYOO proe fen) is a non-steroidal anti-inflammatory drug (NSAID). It is used for dental pain, fever, headaches or migraines, osteoarthritis, rheumatoid arthritis, or painful monthly periods. It can also relieve minor aches and pains caused by a cold, flu, or sore throat. How should I use this medicine? Take this medicine by mouth with a glass of water. Follow the directions on the prescription label. Take this medicine with food if your stomach gets upset. Try to not lie down for at least 10 minutes after you take the medicine. Take your medicine at regular intervals. Do not take your medicine more often than directed. A special MedGuide will be given to you by the pharmacist with each prescription and refill. Be sure to read this information carefully each time. Talk to your dairy bar manager regarding the use of this medicine in children. Special care may be needed. What side effects may I notice from receiving this medicine? Side effects that you should report to your doctor or health grounds caretaker as soon as possible: allergic reactions like skin rash, itching or hives, swelling of the face, lips, or tongue black or bloody stools, blood in the urine or in vomit breathing problems changes in vision chest pain general ill feeling or flu-like symptoms nausea or vomiting redness, blistering, peeling or loosening of the skin, including inside the mouth slurred speech or weakness on one side of the body stomach pain unexplained weight gain or swelling unusually weak or tired yellowing of eyes or skin Side effects that usually do not require medical attention (report to your doctor or health grounds caretaker if they continue or are bothersome): constipation or diarrhea dizziness gas or heartburn stomach upset What may interact with this medicine? Do not take this medicine with any of the following medications: cidofovir ketorolac methotrexate pemetrexed This medicine may also interact with the following medications: alcohol aspirin diuretics lithium other drugs for inflammation like prednisone warfarin What if I miss a dose? If you miss a dose, take it as soon as you can. If it is almost time for your next dose, take only that dose. Do not take double or extra doses. Where should I keep my medicine? Keep out of the reach of children. Store at room temperature between 15 and 30 degrees C (59 and 86 degrees F). Keep container tightly closed. Throw away any unused medicine after the expiration date. What should I tell my health care provider before I take this medicine? They need to know if you have any of these conditions: asthma cigarette smoker drink more than 3 alcohol containing drinks a day heart disease or circulation problems such as heart failure or leg edema (fluid retention) high blood pressure kidney disease liver disease stomach bleeding or ulcers an unusual or allergic reaction to ibuprofen, aspirin, other NSAIDS, other medicines, foods, dyes, or preservatives or trying to get breast-feeding What should I watch for while using this medicine? Tell your doctor or healthcare professional if your symptoms do not start to get better or if they get worse. This medicine does not prevent heart attack or stroke. In fact, this medicine may increase the chance of a heart attack or stroke. The chance may increase with longer use of this medicine and in people who have heart disease. If you take aspirin to prevent heart attack or stroke, talk with your doctor or health grounds caretaker. Do not take other medicines that contain aspirin, ibuprofen, or naproxen with this medicine. Side effects such as stomach upset, nausea, or ulcers may be more likely to occur. Many medicines available without a prescription should not be taken with this medicine. This medicine can cause ulcers and bleeding in the stomach and intestines at any time during treatment. Ulcers and bleeding can happen without warning symptoms and can cause . To reduce your risk, do not smoke cigarettes or drink alcohol while you are taking this medicine. You may get drowsy or dizzy. Do not drive, use machinery, or do anything that needs mental alertness until you know how this medicine affects you. Do not stand or sit up quickly, especially if you are an older patient. This reduces the risk of dizzy or fainting spells. This medicine can cause you to bleed more easily. Try to avoid damage to your teeth and gums when you brush or floss your teeth. You have been given the following additional information: Contusion, Lower Extremity Ibuprofen Oral tablet No strenuous activity. You may walk and bear weight as tolerated. Do not work for three days. (Electronically signed by Nimco Guillen P.A.-C 12/18/2016 21:06)
--- NOTE | 2016-12-19 02:31 | ED MAR SUMMARY ---
..... Medication Administration Record [facility] [address] [place] [address] Patient: PEPE MI Visit ID: [id number] 40y, M Weight: 122.4 kg Height/Length: 74 in BMI: 34.7 ALLERGIES: Penicillins, Sulfa Antibiotics, Vicodin Given 20:01 12/18/2016 Sheriff Gonzales R.N. Medication Administered: MOTRIN [PO], Dose: 800 mg PO. Medication Ordered: Motrin PO 800 mg (NOW).
--- NOTE | 2016-12-19 02:31 | ED MAR SUMMARY ---
..... Medication Administration Record [facility] [address] [place] [address] Patient: PEPE MI Visit ID: [id number] 40y, M Weight: 122.4 kg Height/Length: 74 in BMI: 34.7 ALLERGIES: Penicillins, Sulfa Antibiotics, Vicodin Given 20:01 12/18/2016 Sheriff Gonzales R.N. Medication Administered: MOTRIN [PO], Dose: 800 mg PO. Medication Ordered: Motrin PO 800 mg (NOW).
--- NOTE | 2016-12-19 02:31 | ED MED RECONCILIATION SUMMARY ---
Patient: PEPE MI Medication Reconciliation Report [facility] VisitID: [id number] [address] [place] [address] 40y, M Registration Date/Time: 12/18/2016 Weight: 122.4 kg Height/Length: 74 in. BMI: 34.7 ALLERGIES: Penicillins, Sulfa Antibiotics, Vicodin The patient's Home Medications are listed below: NONE. The source(s) of the original Home Medication information: Not obtained. The following Medications were given to the patient in the Emergency Department: Motrin [PO] PO 800 mg, administered: 12/18/2016 8:01:00 PM The following Medications were prescribed to the patient: Take OTC medications according to label instructions. Available over the counter. -- Nimco Guillen, P.A.-Shannon Motrin IB 200 mg (available over the counter): take 4 orally every 8 hours for 5 days, as needed for pain or swelling -- Nimco Guillen, P.A.-C
== END 2016-12-18 20:45 | disposition home or self-care (01) ==
LOC: ED SRH 19:18
DX: S80.01XA Contusion of right knee, initial encounter (principal); W20.8XXA Other cause of strike by thrown, projected or falling object, initial encounter; Y93.89 Activity, other specified; Y92.89 Other specified places as the place of occurrence of the external cause; Y99.0 Civilian activity done for income or pay; Z88.0 Allergy status to penicillin; Z88.1 Allergy status to other antibiotic agents; Z88.5 Allergy status to narcotic agent

== ENCOUNTER 2017-02-12 17:12 | Emergency (ER) | payer OTHER ==
--- NOTE | 2017-02-12 19:23 | ED NURSING NOTES ---
Clinical Report - Nurses [facility] [address] [place] [address] 02/12/2017 17:14 [id number] Triage time 17:Feb 12 2017. Acuity: LEVEL 4. Chief Complaint: INJURY TO RIGHT SHOULDER. 17:29 02/12/17. Alert. No acute distress. SEPSIS SCREEN: Sepsis Screen. Negative (no infection suspected/documented). ALAN COMA SCORE: Mcdowell Coma Scale: 15- eyes open spontaneously (4); best verbal response- oriented x 4 (5); best motor response- obeys commands (6). --17:29 Ene Clark 17:29 02/12/17. BP: 137/83. HR: 92. RR: 15. O2 saturation: 97%. Temp: 97.8 F. Pain level now 7/10. --17:29 Ene Clark. Weight: 120.2 kg stated. Height/Length: 74 inches Per Patient. BMI: 34. --17:28 Ene Clark. Medications None. --17:28 Ene Clark. Medication/allergy information source: the patient. --17:29 Ene Clark. Allergies Penicillins. ("makes me feel all screwy") Sulfa Antibiotics.(hives) Vicodin.(hives) --17:28 Ene Clark. History Arrived by private vehicle. Historian: patient. Unaccompanied. Primary physician (Rodolfo). This occurred just prior to arrival. Occurred at friend's house. ( Pt was picking up a heavy object and heard a pop. No prior injury to the shoulder. Has full ROM.). No neck pain, weakness or numbness. Treatment KEY PERSON: None. PAST MEDICAL HX: No history of diabetes mellitus, hypertension, heart disease or lung disease. Tetanus status: unknown. SOCIAL HX: Heavy tobacco smoker (cigarette)- less than 1 pack per day. No alcohol use or drug use. FALL RISK ASSESSMENT: Fall risk assessment completed. No fall risk identified. NUTRITIONAL RISK ASSESSMENT: The nutritional risk assessment revealed no deficiencies. FUNCTIONAL ASSESSMENT: Functional assessment: no impairments noted. LEARNING NEEDS ASSESSMENT: The learning needs assessment revealed no barriers. SKIN INTEGRITY ASSESSMENT: Skin integrity risk assessment completed. No skin integrity risk identified. --17:29 Ene Clark. PROBLEMS: Contusion. Athlete's Foot. Bronchitis. Umm-Rectal Abscess. Depression. --17:29 Ene Clark. Assessment The patient states feels the same. --17:29 Ene Clark. Interventions ID band on patient. --17:29 Ene Clark. PHYSICAL ASSESSMENT 17:30 02/12/17. Ambulatory to room. GENERAL / NEURO / PSYCH: Oriented X 4. Alert. Appears in no acute distress. EXTREMITIES: Capillary refill is less than 2 seconds in the extremities. Extremity pulses are within normal limits. Extremities exhibit normal ROM. Neuro-vascular status intact to the extremity. Right shoulder: tenderness. ( gets a sharp pain that shoots down to elbow.). SKIN: Skin intact. Skin is warm and dry. --17:30 Ene Clark. NURSING PROGRESS NOTES 17:30 02/12/17. The plan of care for this patient has been created. Cold pack applied. Extremity elevated. Neuro-vascular extremity check. Reassurance given. Two patient identifiers checked. Call light placed in reach. Side rails up x 1. Bed placed in lowest position. Brakes of bed on. Patient ready for evaluation- chart flagged and ED physician and FIELD SERVICES DIRECTOR notified. --17:30 Ene Clark 19:03 02/12/2017 Toradol (Ketorolac Tromethamine) IM 60 mg given. Given in the right gluteus roxanne. Allergies verified and confirmed 5 rights. --19:03 Ene Clark. DISPOSITION / DISCHARGE 20:02/12/17. Departure time: :Feb 12 2017. Condition at departure: improved. The goals identified in the patient's plan of care were met. No learning barriers present. Discharge instructions provided and reviewed with the patient. Reviewed warnings (Patient verbalized understanding of sedation warning as well as awareness of warning s/sx listed in dc paperwork.). Reviewed medication(s) side effects, precautions, dosing and course information. Prescription(s) given to the patient (ultram). Treatments reviewed. Reviewed referral to a primary care physician for followup. Patient verbalized understanding. Written instructions provided in Uzbek. The patient was discharged by the nurse practitioner. He was discharged home and accompanied by family. He left the Emergency Department ambulatory and via private vehicle. Family member driving. FALL RISK ASSESSMENT: Fall risk assessment completed. No fall risk identified. ALAN COMA SCORE: Mcdowell Coma Scale: 15- eyes open spontaneously (4); best verbal response- oriented x 4 (5); best motor response- obeys commands (6). --20:02 Ene Clark 20:00 02/12/17. BP: 136/72. HR: 74. RR: 14. O2 saturation: 99% on room air. Temp: 97.9 F. Pain level now: 02/02. --20:02 Ene Clark Work note given. --20:02 Ene Clark. Locked/Released at 02/12/2017 20:03 by Ene Clark,
--- NOTE | 2017-02-12 19:23 | ED ORDER SUMMARY ---
..... Patient: PEPE MI OrderSheet [facility] VisitID: [id number] [address] [place] [address] 41y, M Registration Date/Time: 02/12/2017 ORDER SHEET Weight: 120.2 kg (stated) Allergies: Penicillins, Sulfa Antibiotics, Vicodin GENERAL ORDERS: MEDICATION ORDERS: Hydrocodone-APAP PO 5/325 mg (NOW, HIGH ALERT MEDICATION) (18:51 02/12/2017 HBivens A.R.N.P.) (Ack 18:52 ASchmuck) (Cancelled: Wihtkly67:02 ASchmuck) Toradol IM 60 mg (NOW) (19:02 02/12/2017 ASchmuck verbal order read back to HBivens A.R.N.P.) (19:03 ASchmuck) IV FLUIDS: ORDER SHEET NOTES: [Electronically signed by Ene Clark (20:03 02/12/2017)] [Electronically signed by Vivian Becker A.R.N.P. (20:43 02/12/2017)] [Electronically locked/signed by Ene Clark (20:03 02/12/2017)]
--- NOTE | 2017-02-12 19:23 | ED NURSING NOTES ---
Clinical Report - Nurses [facility] [address] [place] [address] 02/12/2017 17:14 [id number] Triage time 17:Feb 12 2017. Acuity: LEVEL 4. Chief Complaint: INJURY TO RIGHT SHOULDER. 17:29 02/12/17. Alert. No acute distress. SEPSIS SCREEN: Sepsis Screen. Negative (no infection suspected/documented). ALAN COMA SCORE: Madison Coma Scale: 15- eyes open spontaneously (4); best verbal response- oriented x 4 (5); best motor response- obeys commands (6). --17:29 Ene Clark 17:29 02/12/17. BP: 137/83. HR: 92. RR: 15. O2 saturation: 97%. Temp: 97.8 F. Pain level now 7/10. --17:29 Ene Clark. Weight: 120.2 kg stated. Height/Length: 74 inches Per Patient. BMI: 34. --17:28 Ene Clark. Medications None. --17:28 Ene Clark. Medication/allergy information source: the patient. --17:29 Ene Clark. Allergies Penicillins. ("makes me feel all screwy") Sulfa Antibiotics.(hives) Vicodin.(hives) --17:28 Ene Clark. History Arrived by private vehicle. Historian: patient. Unaccompanied. Primary physician (Rodolfo). This occurred just prior to arrival. Occurred at friend's house. ( Pt was picking up a heavy object and heard a pop. No prior injury to the shoulder. Has full ROM.). No neck pain, weakness or numbness. Treatment BICYCLE REPAIRMAN: None. PAST MEDICAL HX: No history of diabetes mellitus, hypertension, heart disease or lung disease. Tetanus status: unknown. SOCIAL HX: Heavy tobacco smoker (cigarette)- less than 1 pack per day. No alcohol use or drug use. FALL RISK ASSESSMENT: Fall risk assessment completed. No fall risk identified. NUTRITIONAL RISK ASSESSMENT: The nutritional risk assessment revealed no deficiencies. FUNCTIONAL ASSESSMENT: Functional assessment: no impairments noted. LEARNING NEEDS ASSESSMENT: The learning needs assessment revealed no barriers. SKIN INTEGRITY ASSESSMENT: Skin integrity risk assessment completed. No skin integrity risk identified. --17:29 Ene Clark. PROBLEMS: Contusion. Athlete's Foot. Bronchitis. Umm-Rectal Abscess. Depression. --17:29 Ene Clark. Assessment The patient states feels the same. --17:29 Ene Clark. Interventions ID band on patient. --17:29 Ene Clark. PHYSICAL ASSESSMENT 17:30 02/12/17. Ambulatory to room. GENERAL / NEURO / PSYCH: Oriented X 4. Alert. Appears in no acute distress. EXTREMITIES: Capillary refill is less than 2 seconds in the extremities. Extremity pulses are within normal limits. Extremities exhibit normal ROM. Neuro-vascular status intact to the extremity. Right shoulder: tenderness. ( gets a sharp pain that shoots down to elbow.). SKIN: Skin intact. Skin is warm and dry. --17:30 Ene Clark. NURSING PROGRESS NOTES 17:30 02/12/17. The plan of care for this patient has been created. Cold pack applied. Extremity elevated. Neuro-vascular extremity check. Reassurance given. Two patient identifiers checked. Call light placed in reach. Side rails up x 1. Bed placed in lowest position. Brakes of bed on. Patient ready for evaluation- chart flagged and ED physician and FLOOR SANDING MACHINE OPERATOR notified. --17:30 Ene Clark 19:03 02/12/2017 Toradol (Ketorolac Tromethamine) IM 60 mg given. Given in the right gluteus roxanne. Allergies verified and confirmed 5 rights. --19:03 Ene Clark. DISPOSITION / DISCHARGE 20:02/12/17. Departure time: :Feb 12 2017. Condition at departure: improved. The goals identified in the patient's plan of care were met. No learning barriers present. Discharge instructions provided and reviewed with the patient. Reviewed warnings (Patient verbalized understanding of sedation warning as well as awareness of warning s/sx listed in dc paperwork.). Reviewed medication(s) side effects, precautions, dosing and course information. Prescription(s) given to the patient (ultram). Treatments reviewed. Reviewed referral to a primary care physician for followup. Patient verbalized understanding. Written instructions provided in [place]ian. The patient was discharged by the nurse practitioner. He was discharged home and accompanied by family. He left the Emergency Department ambulatory and via private vehicle. Family member driving. FALL RISK ASSESSMENT: Fall risk assessment completed. No fall risk identified. ALAN COMA SCORE: Madison Coma Scale: 15- eyes open spontaneously (4); best verbal response- oriented x 4 (5); best motor response- obeys commands (6). --20:02 Ene Clark 20:00 02/12/17. BP: 136/72. HR: 74. RR: 14. O2 saturation: 99% on room air. Temp: 97.9 F. Pain level now: 02/02. --20:02 Ene Clark Work note given. --20:02 Ene Clark. Locked/Released at 02/12/2017 20:03 by Ene Clark,
--- NOTE | 2017-02-12 19:23 | ED CLINICAL REPORT ---
Clinical Report - Physicians/Mid Levels [facility] [address] [place] [address] 02/12/2017 17:14 Patient: PEPE MI Time Seen: 17:46; initial patient contact, initial documentation, patient care assumed. Arrived- By private vehicle. Historian- patient. HISTORY OF PRESENT ILLNESS Chief Complaint: Injury to right shoulder. The injury happened just prior to arrival. ( picking up something heavy and felt a pop). Patient is experiencing moderate pain. Patient denies injury to the head or neck. No other injury. REVIEW OF SYSTEMS No swelling, tingling, numbness, weakness or suspected foreign body. No skin laceration. All systems otherwise negative, except as recorded above. PAST HISTORY See nurses notes. PROBLEMS: Contusion. Athlete's Foot. Bronchitis. Umm-Rectal Abscess. Depression. --17:29 Ene Clark. SOCIAL HISTORY Heavy tobacco smoker- less than 1 pack per day. No alcohol use or drug use. No recent travel. Is a local resident. FAMILY HISTORY No significant family medical history. ADDITIONAL NOTES The nursing notes have been reviewed with agreement regarding the chief complaint, HPI, ROS, PMH and patient medications and allergies. PHYSICAL EXAM Vital Signs: 02/12/2017 17:29 BP: 137/83. HR: 92. RR: 15. O2 saturation: 97%. Temp: 97.8 F. Have been reviewed as normal and appear to be correct. Appearance: Alert. Oriented X3. No acute distress. Head: Head atraumatic. Eyes: Pupils equal, round and reactive to light. Eyes normal inspection. Neck: Normal inspection. Neck supple. C-spine non-tender. Respiratory: No respiratory distress. Back: Normal inspection. No tenderness. ROM normal. Skin: Skin intact. Skin warm and dry. Normal skin color. Normal skin turgor. Extremities: Abnormal external inspection. Extremity tenderness. Right acromio-clavicular joint: mild tenderness. No erythema, swelling, laceration, abrasion or ecchymosis. No deformity. Shoulder injury present. Shoulder otherwise negative. Extremities otherwise negative. Neuro, Vascular and Tendons: Sensation intact. Motor intact. Vascular status intact. Tendon function intact. Tendon visualized, uninjured. Neuro: Oriented X 3. No motor deficit. No sensory deficit. Note: isolated injury to shoulder. PROGRESS AND PROCEDURES Course of Care: pt has jung for #5 er visits, see report for full details. Patient counseled in person regarding the patient's stable condition and diagnosis. Differential Diagnosis: I considered fracture, stress fracture, sprain, hyperextension, dislocation, rotator cuff tear, acromioclavicular separation, soft tissue injury, tendonitis, myositis, fasciitis and bursitis as a possible cause of upper extremity pain in this patient. This is a partial list of diagnoses considered. Above considerations are based on history and physical exam. Differential diagnosis was discussed with patient. Disposition: Discharged home in good and improved condition (19:23). Condition: good and stable. CLINICAL IMPRESSION Muscle strain of the right rotator cuff at the shoulder. INSTRUCTIONS Apply ice for 20 minutes four times a day for one days until better. Do not work today, tomorrow. Warnings: GENERAL WARNINGS: Return or contact your physician immediately if your condition worsens or changes unexpectedly, if not improving as expected, or if other problems arise. Specifically return if problem worsens. Prescription Medications: Ultram 50 mg tablets: take 1-2 orally every 6 hours as needed for pain. Dispense twenty (20). No refills. Substitution is permissible. Follow-up: Follow up with your doctor in about five days as needed. Call for an appointment. Summary of care provided to patient. Understanding of the discharge instructions verbalized by patient. [facility] with: [facility], , [address], , [place] [address]; Bertrand Quiroz M.D., [facility], , [address], , [place] [id number]; John Randle M.D., [place], , [address], , [facility] [address]; uGero Nevarez MD, Orthopedic Surgeon, , [address], , [place], [address]; Rodrigo Aburto MD, Orthopedic Surgeon, , [address] [facility], [address] Follow up in about one week as needed. Call for an appointment. Summary of care provided to patient. (Electronically signed by Vivian Becker A.R.N.P. 02/12/2017 20:43)
--- NOTE | 2017-02-12 19:23 | ED ORDER SUMMARY ---
..... Patient: PEPE MI OrderSheet [facility] VisitID: [id number] [address] [place] [address] 41y, M Registration Date/Time: 02/12/2017 ORDER SHEET Weight: 120.2 kg (stated) Allergies: Penicillins, Sulfa Antibiotics, Vicodin GENERAL ORDERS: MEDICATION ORDERS: Hydrocodone-APAP PO 5/325 mg (NOW, HIGH ALERT MEDICATION) (18:51 02/12/2017 HBivens A.R.N.P.) (Ack 18:52 ASchmuck) (Cancelled: Pyqxoxm73:02 ASchmuck) Toradol IM 60 mg (NOW) (19:02 02/12/2017 ASchmuck verbal order read back to HBivens A.R.N.P.) (19:03 ASchmuck) IV FLUIDS: ORDER SHEET NOTES: [Electronically signed by Ene Clark (20:03 02/12/2017)] [Electronically signed by Vivian Becker A.R.N.P. (20:43 02/12/2017)] [Electronically locked/signed by Ene Clark (20:03 02/12/2017)]
--- NOTE | 2017-02-12 19:23 | ED CLINICAL REPORT ---
Clinical Report - Physicians/Mid Levels [facility] [address] [place] [address] 02/12/2017 17:14 Patient: PEPE MI Time Seen: 17:46; initial patient contact, initial documentation, patient care assumed. Arrived- By private vehicle. Historian- patient. HISTORY OF PRESENT ILLNESS Chief Complaint: Injury to right shoulder. The injury happened just prior to arrival. ( picking up something heavy and felt a pop). Patient is experiencing moderate pain. Patient denies injury to the head or neck. No other injury. REVIEW OF SYSTEMS No swelling, tingling, numbness, weakness or suspected foreign body. No skin laceration. All systems otherwise negative, except as recorded above. PAST HISTORY See nurses notes. PROBLEMS: Contusion. Athlete's Foot. Bronchitis. Umm-Rectal Abscess. Depression. --17:29 Ene Clark. SOCIAL HISTORY Heavy tobacco smoker- less than 1 pack per day. No alcohol use or drug use. No recent travel. Is a local resident. FAMILY HISTORY No significant family medical history. ADDITIONAL NOTES The nursing notes have been reviewed with agreement regarding the chief complaint, HPI, ROS, PMH and patient medications and allergies. PHYSICAL EXAM Vital Signs: 02/12/2017 17:29 BP: 137/83. HR: 92. RR: 15. O2 saturation: 97%. Temp: 97.8 F. Have been reviewed as normal and appear to be correct. Appearance: Alert. Oriented X3. No acute distress. Head: Head atraumatic. Eyes: Pupils equal, round and reactive to light. Eyes normal inspection. Neck: Normal inspection. Neck supple. C-spine non-tender. Respiratory: No respiratory distress. Back: Normal inspection. No tenderness. ROM normal. Skin: Skin intact. Skin warm and dry. Normal skin color. Normal skin turgor. Extremities: Abnormal external inspection. Extremity tenderness. Right acromio-clavicular joint: mild tenderness. No erythema, swelling, laceration, abrasion or ecchymosis. No deformity. Shoulder injury present. Shoulder otherwise negative. Extremities otherwise negative. Neuro, Vascular and Tendons: Sensation intact. Motor intact. Vascular status intact. Tendon function intact. Tendon visualized, uninjured. Neuro: Oriented X 3. No motor deficit. No sensory deficit. Note: isolated injury to shoulder. PROGRESS AND PROCEDURES Course of Care: pt has jung for #5 er visits, see report for full details. Patient counseled in person regarding the patient's stable condition and diagnosis. Differential Diagnosis: I considered fracture, stress fracture, sprain, hyperextension, dislocation, rotator cuff tear, acromioclavicular separation, soft tissue injury, tendonitis, myositis, fasciitis and bursitis as a possible cause of upper extremity pain in this patient. This is a partial list of diagnoses considered. Above considerations are based on history and physical exam. Differential diagnosis was discussed with patient. Disposition: Discharged home in good and improved condition (19:23). Condition: good and stable. CLINICAL IMPRESSION Muscle strain of the right rotator cuff at the shoulder. INSTRUCTIONS Apply ice for 20 minutes four times a day for one days until better. Do not work today, tomorrow. Warnings: GENERAL WARNINGS: Return or contact your physician immediately if your condition worsens or changes unexpectedly, if not improving as expected, or if other problems arise. Specifically return if problem worsens. Prescription Medications: Ultram 50 mg tablets: take 1-2 orally every 6 hours as needed for pain. Dispense twenty (20). No refills. Substitution is permissible. Follow-up: Follow up with your doctor in about five days as needed. Call for an appointment. Summary of care provided to patient. Understanding of the discharge instructions verbalized by patient. [facility] with: [facility], , [address], , [place] [address]; Bertrand Quiroz M.D., [facility], , [address], , [place] [phone]; John Randle M.D., [place], , [address], , [facility] [address]; Guero Nevarez MD, Orthopedic Surgeon, , [address], , [place], [address]; Rodrigo Aburto MD, Orthopedic Surgeon, , [address] [facility], [address] Follow up in about one week as needed. Call for an appointment. Summary of care provided to patient. (Electronically signed by Vivian Becker A.R.N.P. 02/12/2017 20:43)
--- NOTE | 2017-02-12 20:43 | ED MED RECONCILIATION SUMMARY ---
Patient: PEPE MI Medication Reconciliation Report [facility] VisitID: [id number] [address] [place] [address] 41y, M Registration Date/Time: 02/12/2017 Weight: 120.2 kg Height/Length: 74 in. BMI: 34.0 ALLERGIES: Penicillins, Sulfa Antibiotics, Vicodin The patient's Home Medications are listed below: NONE. The source(s) of the original Home Medication information: patient The following Medications were given to the patient in the Emergency Department: Toradol [IM] IM 60 mg, administered: 02/12/2017 7:03:00 PM The following Medications were prescribed to the patient: Ultram 50 mg tablets: take 1-2 orally every 6 hours as needed for pain. Dispense twenty (20). No refills. Substitution is permissible. -- Vivian Becker A.R.N.P.
--- NOTE | 2017-02-12 20:43 | ED DISCHARGE INSTRUCTIONS ---
Patient: PEPE MI General Instructions [facility] VisitID: [id number] [address], [place], [place] [id number] 41y, M Registration Date/Time: 02/12/2017 Muscle strain of the right rotator cuff at the shoulder. INSTRUCTIONS Apply ice for 20 minutes four times a day for one days until better. Do not work today, tomorrow. Warnings: GENERAL WARNINGS: Return or contact your physician immediately if your condition worsens or changes unexpectedly, if not improving as expected, or if other problems arise. Specifically return if problem worsens. Prescription Medications: Ultram 50 mg tablets: take 1-2 orally every 6 hours as needed for pain. Dispense twenty (20). No refills. Substitution is permissible. Follow-up: Follow up with your doctor in about five days as needed. Call for an appointment. Summary of care provided to patient. Understanding of the discharge instructions verbalized by patient. Follow-up with: [facility], , [address], , [place] [phone]; Bertrand Quiroz M.D., [facility], , [address], , [place] [phone]; John Randle M.D., Orth[facility], , [address], , [facility] [address]; Guero Nevarez MD, Orthopedic Surgeon, , [address], , [place], [address]; Rodrigo Aburto MD, Orthopedic Surgeon, , [address] , [place] [phone] Follow up in about one week as needed. Call for an appointment. Summary of care provided to patient. ADDITIONAL INFORMATION Muscle Strain,Extremity A MUSCLE STRAIN is a stretching and tearing of muscle fibers. This causes pain, especially with motion of that muscle. There may also be some swelling and bruising. Home Care: 1) Keep the injured area raised to reduce pain and swelling. This is especially important during the first 48 hours. 2) Make an ice pack (ice cubes in a plastic bag, wrapped in a towel) and apply for 20 minutes every 1-2 hours the first day. You should continue with ice packs 3-4 times a day for the second and third days. Unless otherwise instructed, on the fourth day you may begin hot soaks or hot packs (small towel soaked in hot water) 3-4 times a day while you gently exercise the involved area. 3) You may use acetaminophen (Tylenol) or ibuprofen (Motrin, Advil) to control pain, unless another medicine was prescribed. [ NOTE : If you have chronic liver or kidney disease or ever had a stomach ulcer or GI bleeding, talk with your doctor before using these medicines.] 4) For LEG STRAINS: If CRUTCHES have been recommended, do not bear full weight on the injured leg until you can do so without pain. You may return to sports when you are able to hop and run on the injured leg without pain. Follow Up with your doctor or this facility if you are not improving within the next five days. Get Prompt Medical Attention if any of the following occur: -- Fingers or toes become swollen, cold, blue, numb or tingly -- Pain or swelling increases Tramadol Hydrochloride Oral tablet What is this medicine? TRAMADOL (TRA ma dole) is a pain reliever. It is used to treat moderate to severe pain in adults. How should I use this medicine? Take this medicine by mouth with a full glass of water. Follow the directions on the prescription label. If the medicine upsets your stomach, take it with food or milk. Do not take more medicine than you are told to take. Talk to your corn cutter regarding the use of this medicine in children. Special care may be needed. What side effects may I notice from receiving this medicine? Side effects that you should report to your doctor or health wound care physician as soon as possible: allergic reactions like skin rash, itching or hives, swelling of the face, lips, or tongue breathing difficulties, wheezing confusion itching light headedness or fainting spells redness, blistering, peeling or loosening of the skin, including inside the mouth seizures Side effects that usually do not require medical attention (report to your doctor or health wound care physician if they continue or are bothersome): constipation dizziness drowsiness headache nausea, vomiting What may interact with this medicine? Do not take this medicine with any of the following medications: MAOIs like Carbex, Eldepryl, Marplan, Nardil, and Parnate This medicine may also interact with the following medications: alcohol or medicines that contain alcohol antihistamines benzodiazepines bupropion carbamazepine or oxcarbazepine clozapine cyclobenzaprine digoxin furazolidone linezolid medicines for depression, anxiety, or psychotic disturbances medicines for migraine headache like almotriptan, eletriptan, frovatriptan, naratriptan, rizatriptan, sumatriptan, zolmitriptan medicines for pain like pentazocine, buprenorphine, butorphanol, meperidine, nalbuphine, and propoxyphene medicines for sleep muscle relaxants naltrexone phenobarbital phenothiazines like perphenazine, thioridazine, chlorpromazine, mesoridazine, fluphenazine, prochlorperazine, promazine, and trifluoperazine procarbazine warfarin What if I miss a dose? If you miss a dose, take it as soon as you can. If it is almost time for your next dose, take only that dose. Do not take double or extra doses. Where should I keep my medicine? Keep out of the reach of children. Store at room temperature between 15 and 30 degrees C (59 and 86 degrees F). Keep container tightly closed. Throw away any unused medicine after the expiration date. What should I tell my health care provider before I take this medicine? They need to know if you have any of these conditions: brain tumor depression drug abuse or addiction head injury if you frequently drink alcohol containing drinks kidney disease or trouble passing urine liver disease lung disease, asthma, or breathing problems seizures or epilepsy suicidal thoughts, plans, or attempt; a previous suicide attempt by you or a family member an unusual or allergic reaction to tramadol, codeine, other medicines, foods, dyes, or preservatives or trying to get breast-feeding What should I watch for while using this medicine? Tell your doctor or health wound care physician if your pain does not go away, if it gets worse, or if you have new or a different type of pain. You may develop tolerance to the medicine. Tolerance means that you will need a higher dose of the medicine for pain relief. Tolerance is normal and is expected if you take this medicine for a long time. Do not suddenly stop taking your medicine because you may develop a severe reaction. Your body becomes used to the medicine. This does NOT mean you are addicted. Addiction is a behavior related to getting and using a drug for a non-medical reason. If you have pain, you have a medical reason to take pain medicine. Your doctor will tell you how much medicine to take. If your doctor wants you to stop the medicine, the dose will be slowly lowered over time to avoid any side effects. You may get drowsy or dizzy. Do not drive, use machinery, or do anything that needs mental alertness until you know how this medicine affects you. Do not stand or sit up quickly, especially if you are an older patient. This reduces the risk of dizzy or fainting spells. Alcohol can increase or decrease the effects of this medicine. Avoid alcoholic drinks. You may have constipation. Try to have a bowel movement at least every 2 to 3 days. If you do not have a bowel movement for 3 days, call your doctor or health wound care physician. Your mouth may get dry. Chewing sugarless gum or sucking hard candy, and drinking plenty of water may help. Contact your doctor if the problem does not go away or is severe. You have been given the following additional information: Muscle Strain, Extremity Tramadol Hydrochloride Oral tablet Do not work today, tomorrow. (Electronically signed by Vivian Becker A.R.N.P. 02/12/2017 20:43)
--- NOTE | 2017-02-12 20:43 | ED MED RECONCILIATION SUMMARY ---
Patient: PEPE MI Medication Reconciliation Report [facility] VisitID: [id number] [address] [place] [address] 41y, M Registration Date/Time: 02/12/2017 Weight: 120.2 kg Height/Length: 74 in. BMI: 34.0 ALLERGIES: Penicillins, Sulfa Antibiotics, Vicodin The patient's Home Medications are listed below: NONE. The source(s) of the original Home Medication information: patient The following Medications were given to the patient in the Emergency Department: Toradol [IM] IM 60 mg, administered: 02/12/2017 7:03:00 PM The following Medications were prescribed to the patient: Ultram 50 mg tablets: take 1-2 orally every 6 hours as needed for pain. Dispense twenty (20). No refills. Substitution is permissible. -- Vivian Becker A.R.N.P.
--- NOTE | 2017-02-12 20:43 | ED DISCHARGE INSTRUCTIONS ---
Patient: PEPE MI General Instructions [facility] VisitID: [id number] [address], [place], [place] [id number] 41y, M Registration Date/Time: 02/12/2017 Muscle strain of the right rotator cuff at the shoulder. INSTRUCTIONS Apply ice for 20 minutes four times a day for one days until better. Do not work today, tomorrow. Warnings: GENERAL WARNINGS: Return or contact your physician immediately if your condition worsens or changes unexpectedly, if not improving as expected, or if other problems arise. Specifically return if problem worsens. Prescription Medications: Ultram 50 mg tablets: take 1-2 orally every 6 hours as needed for pain. Dispense twenty (20). No refills. Substitution is permissible. Follow-up: Follow up with your doctor in about five days as needed. Call for an appointment. Summary of care provided to patient. Understanding of the discharge instructions verbalized by patient. Follow-up with: [facility], , [address], , [place] [id number]; Bertrand Quiroz M.D., Ortho, , [address] , [place] [id number]; John Randle M.D., Ortho, , [address], , [facility] [address]; Guero Nevarez MD, Orthopedic Surgeon, , [id number], , [place], [address]; Rodrigo Aburto MD, Orthopedic Surgeon, , [address] , [place] [phone] Follow up in about one week as needed. Call for an appointment. Summary of care provided to patient. ADDITIONAL INFORMATION Muscle Strain,Extremity A MUSCLE STRAIN is a stretching and tearing of muscle fibers. This causes pain, especially with motion of that muscle. There may also be some swelling and bruising. Home Care: 1) Keep the injured area raised to reduce pain and swelling. This is especially important during the first 48 hours. 2) Make an ice pack (ice cubes in a plastic bag, wrapped in a towel) and apply for 20 minutes every 1-2 hours the first day. You should continue with ice packs 3-4 times a day for the second and third days. Unless otherwise instructed, on the fourth day you may begin hot soaks or hot packs (small towel soaked in hot water) 3-4 times a day while you gently exercise the involved area. 3) You may use acetaminophen (Tylenol) or ibuprofen (Motrin, Advil) to control pain, unless another medicine was prescribed. [ NOTE : If you have chronic liver or kidney disease or ever had a stomach ulcer or GI bleeding, talk with your doctor before using these medicines.] 4) For LEG STRAINS: If CRUTCHES have been recommended, do not bear full weight on the injured leg until you can do so without pain. You may return to sports when you are able to hop and run on the injured leg without pain. Follow Up with your doctor or this facility if you are not improving within the next five days. Get Prompt Medical Attention if any of the following occur: -- Fingers or toes become swollen, cold, blue, numb or tingly -- Pain or swelling increases Tramadol Hydrochloride Oral tablet What is this medicine? TRAMADOL (TRA ma dole) is a pain reliever. It is used to treat moderate to severe pain in adults. How should I use this medicine? Take this medicine by mouth with a full glass of water. Follow the directions on the prescription label. If the medicine upsets your stomach, take it with food or milk. Do not take more medicine than you are told to take. Talk to your aircraft powertrain repairer regarding the use of this medicine in children. Special care may be needed. What side effects may I notice from receiving this medicine? Side effects that you should report to your doctor or health nursing care attendant as soon as possible: allergic reactions like skin rash, itching or hives, swelling of the face, lips, or tongue breathing difficulties, wheezing confusion itching light headedness or fainting spells redness, blistering, peeling or loosening of the skin, including inside the mouth seizures Side effects that usually do not require medical attention (report to your doctor or health nursing care attendant if they continue or are bothersome): constipation dizziness drowsiness headache nausea, vomiting What may interact with this medicine? Do not take this medicine with any of the following medications: MAOIs like Carbex, Eldepryl, Marplan, Nardil, and Parnate This medicine may also interact with the following medications: alcohol or medicines that contain alcohol antihistamines benzodiazepines bupropion carbamazepine or oxcarbazepine clozapine cyclobenzaprine digoxin furazolidone linezolid medicines for depression, anxiety, or psychotic disturbances medicines for migraine headache like almotriptan, eletriptan, frovatriptan, naratriptan, rizatriptan, sumatriptan, zolmitriptan medicines for pain like pentazocine, buprenorphine, butorphanol, meperidine, nalbuphine, and propoxyphene medicines for sleep muscle relaxants naltrexone phenobarbital phenothiazines like perphenazine, thioridazine, chlorpromazine, mesoridazine, fluphenazine, prochlorperazine, promazine, and trifluoperazine procarbazine warfarin What if I miss a dose? If you miss a dose, take it as soon as you can. If it is almost time for your next dose, take only that dose. Do not take double or extra doses. Where should I keep my medicine? Keep out of the reach of children. Store at room temperature between 15 and 30 degrees C (59 and 86 degrees F). Keep container tightly closed. Throw away any unused medicine after the expiration date. What should I tell my health care provider before I take this medicine? They need to know if you have any of these conditions: brain tumor depression drug abuse or addiction head injury if you frequently drink alcohol containing drinks kidney disease or trouble passing urine liver disease lung disease, asthma, or breathing problems seizures or epilepsy suicidal thoughts, plans, or attempt; a previous suicide attempt by you or a family member an unusual or allergic reaction to tramadol, codeine, other medicines, foods, dyes, or preservatives or trying to get breast-feeding What should I watch for while using this medicine? Tell your doctor or health nursing care attendant if your pain does not go away, if it gets worse, or if you have new or a different type of pain. You may develop tolerance to the medicine. Tolerance means that you will need a higher dose of the medicine for pain relief. Tolerance is normal and is expected if you take this medicine for a long time. Do not suddenly stop taking your medicine because you may develop a severe reaction. Your body becomes used to the medicine. This does NOT mean you are addicted. Addiction is a behavior related to getting and using a drug for a non-medical reason. If you have pain, you have a medical reason to take pain medicine. Your doctor will tell you how much medicine to take. If your doctor wants you to stop the medicine, the dose will be slowly lowered over time to avoid any side effects. You may get drowsy or dizzy. Do not drive, use machinery, or do anything that needs mental alertness until you know how this medicine affects you. Do not stand or sit up quickly, especially if you are an older patient. This reduces the risk of dizzy or fainting spells. Alcohol can increase or decrease the effects of this medicine. Avoid alcoholic drinks. You may have constipation. Try to have a bowel movement at least every 2 to 3 days. If you do not have a bowel movement for 3 days, call your doctor or health nursing care attendant. Your mouth may get dry. Chewing sugarless gum or sucking hard candy, and drinking plenty of water may help. Contact your doctor if the problem does not go away or is severe. You have been given the following additional information: Muscle Strain, Extremity Tramadol Hydrochloride Oral tablet Do not work today, tomorrow. (Electronically signed by Vivian Becker A.R.N.P. 02/12/2017 20:43)
--- NOTE | 2017-02-12 20:43 | ED MAR SUMMARY ---
..... Medication Administration Record [facility] [address] [place] [address] Patient: PEPE MI Visit ID: [id number] 41y, M Weight: 120.2 kg Height/Length: 74 in BMI: 34 ALLERGIES: Penicillins, Sulfa Antibiotics, Vicodin Given 19:03 02/12/2017 Ene Clark, Medication Administered: TORADOL [IM] (KETOROLAC TROMETHAMINE), Dose: 60 mg IM. Medication Ordered: Toradol IM 60 mg (NOW).
--- NOTE | 2017-02-12 20:43 | ED MAR SUMMARY ---
..... Medication Administration Record [facility] [address] [place] [address] Patient: PEPE MI Visit ID: [id number] 41y, M Weight: 120.2 kg Height/Length: 74 in BMI: 34 ALLERGIES: Penicillins, Sulfa Antibiotics, Vicodin Given 19:03 02/12/2017 Ene Clark, Medication Administered: TORADOL [IM] (KETOROLAC TROMETHAMINE), Dose: 60 mg IM. Medication Ordered: Toradol IM 60 mg (NOW).
== END 2017-02-12 20:02 | disposition home or self-care (01) ==
LOC: ED SRH 17:12
DX: S46.011A Strain of muscle(s) and tendon(s) of the rotator cuff of right shoulder, initial encounter (principal); X50.0XXA Overexertion from strenuous movement or load, initial encounter; Y93.89 Activity, other specified; Y99.9 Unspecified external cause status; Y92.009 Unspecified place in unspecified non-institutional (private) residence as the place of occurrence of the external cause; Z72.0 Tobacco use